=== PATIENT | male | born 1970 | race Caucasian/White ===

== ENCOUNTER → 2023-12-24 | Outpatient (CLI) | payer MEDICAID ==
[2023-12-24 12:49] LABS: BASO % 0.6 % (0.0-1.0); EOS # 0.1 10*3/uL (0.0-0.4); EOS % 0.9 % (1.0-4.0); HEMATOCRIT 42.2 % (42.0-52.0); MEAN CELL VOLUME 102.4 fl (80.0-94.0); MEAN CORPUSCULAR HGB 35.4 pg (27.0-31.0); MEAN CORPUSCULAR HGB CONC 34.6 g/dl (33.0-37.0); MEAN PLATELET VOLUME 8.8 fl (9.6-12.3); MONO # 0.5 10*3/uL (0.1-1.0); MONO % 8.1 % (3.0-9.0); NEUT # 3.8 10*3/uL (2.3-7.9); NEUT % 56.7 % (47.0-73.0); PLATELET COUNT AUTOMATED 352 10*3/uL (130-400); RED BLOOD COUNT 4.12 10*6/uL (4.50-5.90); RED CELL DISTRI WIDTH 14.5 % (0-14.5); WHITE BLOOD COUNT 6.6 10*3/uL (4.8-10.8)
[2023-12-24 13:15] LABS: ALKALINE PHOSPHATASE 54 U/L (46-116); BUN 22 mg/dl (9-23); CHLORIDE 101 mmol/L (98-107); CHOLESTEROL 157 mg/dL (<200); FREE T4 1.57 ng/dl (0.89-1.76); LDL CHOLESTEROL 58 mg/dL (9-159); SGPT/ALT 28 U/L (5-49); TOTAL PROTEIN 8.2 gm/dL (6.0-8.0); TRIGLYCERIDES 71 mg/dl (<150)
[2023-12-24 13:19] LABS: VITAMIN D, 25-HYDROXY 55.9 ng/mL (30-100)
[2023-12-25 14:06] LABS: CCP ANTIBODIES IGG/IGA 8 units (0-19)
== END | disposition home or self-care (01) ==
LOC: LAB 12:26
PROVIDERS: ATTEND Internal Medicine
DX: M17.0 Bilateral primary osteoarthritis of knee (principal); M19.042 Primary osteoarthritis, left hand; M19.041 Primary osteoarthritis, right hand; M25.462 Effusion, left knee; M25.461 Effusion, right knee; I10 Essential (primary) hypertension; M25.561 Pain in right knee; M25.562 Pain in left knee

== ENCOUNTER → 2024-02-25 | Outpatient (CLI) | payer OTHER ==
[~2024-02-25] MED LIST: LISINOPRIL20 MG PO; MELOXICAM7.5 MG PO; METHOTREXATE2.5 MG PO; PREDNISOLONE SO10 MG PO; PROMETHAZINE25 M1 PO
== END | disposition home or self-care (01) ==
LOC: RAD 07:40 → CT 09:00
PROVIDERS: ATTEND Orthopaedic Surgery
DX: M17.12 Unilateral primary osteoarthritis, left knee (principal); M81.0 Age-related osteoporosis without current pathological fracture; M25.462 Effusion, left knee; M79.89 Other specified soft tissue disorders

== ENCOUNTER 2024-04-18 01:07 | Inpatient (IN) | payer OTHER ==
[2024-04-11 11:43] LABS: BASO % 0.6 % (0.0-1.0); EOS # 0.1 10*3/uL (0.0-0.4); EOS % 1.8 % (1.0-4.0); HEMATOCRIT 47.7 % (42.0-52.0); MEAN CELL VOLUME 98.8 fl (80.0-94.0); MEAN CORPUSCULAR HGB 32.5 pg (27.0-31.0); MEAN CORPUSCULAR HGB CONC 32.9 g/dl (33.0-37.0); MEAN PLATELET VOLUME 9.3 fl (9.6-12.3); MONO # 0.5 10*3/uL (0.1-1.0); MONO % 10.8 % (3.0-9.0); NEUT # 2.2 10*3/uL (2.3-7.9); NEUT % 44.5 % (47.0-73.0); PLATELET COUNT AUTOMATED 224 10*3/uL (130-400); RED BLOOD COUNT 4.83 10*6/uL (4.50-5.90); RED CELL DISTRI WIDTH 14.1 % (0-14.5)
[2024-04-11 11:44] LABS: BILIRUBIN Negative (Negative); BLOOD Negative (Negative); CLARITY Clear (Clear); COLOR Yellow (Yellow); GLUCOSE Negative (Negative); KETONE Negative (Negative); LEUKO ESTERASE Negative (Negative); NITRITE Negative (Negative); PH 5.5 (4.5-8.0); SPECIFIC GRAVITY 1.015 (1.001-1.030); UROBILINOGEN 0.2 E.U./dl (0.0-1.0)
[2024-04-11 11:53] LABS: ACT PARTIAL THROMBO TIME 28.2 SECONDS (20.0-32.1)
[2024-04-11 12:08] LABS: BACTERIA TRACE; WBC 0-2 wbc/hpf (0-5)
[2024-04-11 12:23] LABS: ALKALINE PHOSPHATASE 74 U/L (46-116); BUN 14 mg/dl (9-23); CHLORIDE 102 mmol/L (98-107); POTASSIUM 4.3 mmol/L (3.4-5.1); SGPT/ALT 10 U/L (5-49); TOTAL PROTEIN 7.6 gm/dL (6.0-8.0)
[~2024-04-18] VITALS: Ht 182.8 cm; Wt 83.1 kg
[2024-04-18] VITALS (9 sets, daily range): BP systolic 117–146; BP diastolic 77–99
[~2024-04-18 01:07] MED LIST changes: +TRAMADOL HCL25 MG PO; +VITAMIN D350 MCG PO
[2024-04-18] MEDS ORDERED: TRANEXAMIC ACID IN NACL,ISO-OS 100 ML IV SCH (06:50)
[2024-04-18] MEDS ORDERED: ceFAZolin sodium 2GM/20ML IV ONE (06:50)
[2024-04-18] MEDS ORDERED: Lactated Ringer's Solution 1,000 ML IV ONE ×3 (06:50→15:35)
[2024-04-18] MEDS ORDERED: Ropivacaine Hydrochloride 5 MG/ML 20 ML AMP IJ ONE (07:03)
[2024-04-18] MEDS ORDERED: TRANEXAMIC ACID IN NACL,ISO-OS 100 ML IV ONE (07:11)
[2024-04-18] MEDS ORDERED: ceFAZolin sodium/sodium chlor 0 ML IV ONE (07:13)
[2024-04-18] MEDS ORDERED: Acetaminophen/Oxycodone 5 MG/325 MG TABLET PO PRN (07:30)
[2024-04-18] MEDS ORDERED: MORPHINE Sulfate 4 MG IV PRN (07:30)
[2024-04-18] MEDS ORDERED: Ondansetron Hydrochloride 4 MG/2 ML VIAL IV PRN (07:30)
[2024-04-18] MEDS ORDERED: Bupivacaine Hydrochloride/Ep2 30 ML VIAL ONE (07:36)
[2024-04-18] MEDS ORDERED: MORPHINE Sulfate 2 MG/ML SYR IV PRN (07:40)
[2024-04-18] MEDS ORDERED: Lidocaine Hydrochloride 2 ML IV ONE (07:40)
[2024-04-18] MEDS ORDERED: Cholecalciferol 2,000 UNIT TABLET (50 MCG) PO SCH (10:00)
[2024-04-18] MEDS ORDERED: DOCUSATE SODIUM 100 MG CAP PO SCH (10:00)
[2024-04-18] MEDS ORDERED: TRAMADOL HCL50 MG PO (11:49)
[2024-04-18] MEDS ORDERED: ELIQUIS5 M1 PO (11:50)
[2024-04-18] MEDS ORDERED: AIRSUPRA 90-810.7 GM INH (11:50)
[2024-04-18] MEDS ORDERED: TIZANIDINE2 MG PO (11:51)
[2024-04-18] MEDS ORDERED: NATURE'S BLEND F1 MG PO (11:51)
[2024-04-18] MEDS ORDERED: ceFAZolin sodium/sodium chlor 20 ML IV ONE (12:33)
[2024-04-18] MEDS ORDERED: ceFAZolin sodium 1 GM in SYRINGE INFUSION 10 ML IV SCH (16:00)
[2024-04-18] MEDS ORDERED: HYDROmorphone Hydrochloride 1 MG/ML SYR IV ONE ×2 (18:10→18:25)
[2024-04-18] MEDS ORDERED: HYDROmorphone Hydrochloride 1 ML IV ONE ×2 (18:28→18:44)
[2024-04-18] MEDS ORDERED: Ondansetron Hydrochloride 4 MG/2 ML VIAL IV ONE (19:01)
[2024-04-18] MEDS ORDERED: ePHEDrine Sulfate 25 MG/5 ML SYRINGE IV ONE (19:01)
[2024-04-18] MEDS ORDERED: Ketamine Hydrochloride 50 MG/5 ML SYRINGE IV ONE (19:01)
[2024-04-18] MEDS ORDERED: Lidocaine Hydrochloride 5 ML VIAL IV ONE (19:01)
[2024-04-18] MEDS ORDERED: PROPOFOL 200 MG/20 ML VIAL IV ONE (19:01)
[2024-04-18] MEDS ORDERED: Dexamethasone Sodium Phospha 4 MG/ML VIAL IV ONE (19:01)
[2024-04-18] MEDS ORDERED: SEVOFLURANE 250 ML BOT INH ONE (19:01)
[2024-04-18] MEDS ORDERED: fentaNYL CITRATE 100 MCG/2 ML VIAL IV ONE (19:01)
[2024-04-18] MEDS ORDERED: Ketorolac Tromethamine 30 MG/ML VIAL IV ONE (19:01)
[2024-04-18] MEDS ORDERED: Midazolam Hydrochloride 2 MG/2 ML VIAL IV ONE (19:01)
[2024-04-18] MEDS ORDERED: Albuterol Sulf/Ipratropium 3 ML VIAL NEB SCH (20:10)
[2024-04-18] MEDS ORDERED: Meloxicam 15 MG TAB PO SCH (22:00)
[2024-04-18] MEDS ORDERED: tiZANidine Hydrochloride 2 MG TAB PO SCH (22:00)
[2024-04-19] VITALS: BP 123/95
[2024-04-19 06:08] LABS: BASO % 0.3 % (0.0-1.0); EOS % 0.1 % (1.0-4.0); HEMATOCRIT 41.7 % (42.0-52.0); MEAN CORPUSCULAR HGB 32.8 pg (27.0-31.0); MEAN CORPUSCULAR HGB CONC 33.1 g/dl (33.0-37.0); MEAN PLATELET VOLUME 9.5 fl (9.6-12.3); MONO # 0.8 10*3/uL (0.1-1.0); NEUT # 8.1 10*3/uL (2.3-7.9); NEUT % 77.2 % (47.0-73.0); PLATELET COUNT AUTOMATED 202 10*3/uL (130-400); RED BLOOD COUNT 4.21 10*6/uL (4.50-5.90); RED CELL DISTRI WIDTH 13.6 % (0-14.5); WHITE BLOOD COUNT 10.5 10*3/uL (4.8-10.8)
[2024-04-19 06:23] LABS: BUN 12 mg/dl (9-23); CHLORIDE 102 mmol/L (98-107); POTASSIUM 4.5 mmol/L (3.4-5.1)
[2024-04-19 08:00] VITALS: BP 101/63
[2024-04-19] MEDS ORDERED: FOLIC ACID 1 MG TAB PO SCH (10:00)
[2024-04-19] MEDS ORDERED: LISINOPRIL 20 MG TAB PO SCH (10:00)
[2024-04-19 12:00] VITALS: BP 115/72
[2024-04-19 16:00] VITALS: BP 118/68
[2024-04-19 20:00] VITALS: BP 116/87
[2024-04-20] VITALS: BP 100/73
[2024-04-20 06:40] LABS: BASO # 0.1 10*3/uL (0.0-0.1); BASO % 0.5 % (0.0-1.0); EOS # 0.1 10*3/uL (0.0-0.4); EOS % 0.5 % (1.0-4.0); HEMATOCRIT 42.1 % (42.0-52.0); MEAN CELL VOLUME 96.1 fl (80.0-94.0); MEAN CORPUSCULAR HGB 32.9 pg (27.0-31.0); MEAN CORPUSCULAR HGB CONC 34.2 g/dl (33.0-37.0); MEAN PLATELET VOLUME 9.5 fl (9.6-12.3); MONO # 1.1 10*3/uL (0.1-1.0); MONO % 10.2 % (3.0-9.0); NEUT # 8.3 10*3/uL (2.3-7.9); NEUT % 74.8 % (47.0-73.0); PLATELET COUNT AUTOMATED 197 10*3/uL (130-400); RED BLOOD COUNT 4.38 10*6/uL (4.50-5.90); RED CELL DISTRI WIDTH 13.4 % (0-14.5); WHITE BLOOD COUNT 11.1 10*3/uL (4.8-10.8)
[2024-04-20 08:00] VITALS: BP 108/57
[2024-04-20] MEDS ORDERED: APIXABAN 5 MG TAB PO SCH (10:00)
[2024-04-20 12:00] VITALS: BP 103/81
[2024-04-20 16:00] VITALS: BP 113/75
[2024-04-20 19:51] VITALS: BP 121/68
[2024-04-21] VITALS: BP 96/62
[2024-04-21 04:00] VITALS: BP 99/65
[2024-04-21 06:13] LABS: BASO % 0.3 % (0.0-1.0); EOS # 0.1 10*3/uL (0.0-0.4); EOS % 1.3 % (1.0-4.0); HEMATOCRIT 40.7 % (42.0-52.0); MEAN CELL VOLUME 98.1 fl (80.0-94.0); MEAN CORPUSCULAR HGB 32.8 pg (27.0-31.0); MEAN CORPUSCULAR HGB CONC 33.4 g/dl (33.0-37.0); MEAN PLATELET VOLUME 9.7 fl (9.6-12.3); MONO # 0.9 10*3/uL (0.1-1.0); MONO % 10.2 % (3.0-9.0); NEUT # 6.8 10*3/uL (2.3-7.9); NEUT % 74.9 % (47.0-73.0); PLATELET COUNT AUTOMATED 221 10*3/uL (130-400); RED BLOOD COUNT 4.15 10*6/uL (4.50-5.90); RED CELL DISTRI WIDTH 13.4 % (0-14.5); WHITE BLOOD COUNT 9.1 10*3/uL (4.8-10.8)
[2024-04-21 08:00] VITALS: BP 108/68
[2024-04-21] MEDS ORDERED: MORPHINE Sulfate 2 MG/ML SYR ONE (09:16)
[2024-04-21] MEDS ORDERED: APIXABAN 5 MG TAB PO SCH (10:00)
[2024-04-21] MEDS ORDERED: OXYCODONE-ACET1 EAC3 PO (11:37)
[2024-04-21 12:00] VITALS: BP 114/77
== END 2024-04-21 12:12 | disposition home or self-care (01) | DRG 326 ==
LOC: SDC 01:07 → 5E 08:44
PROVIDERS: Orthopaedic Surgery; ADMIT Internal Medicine; ATTEND Internal Medicine
PROC: 0SRD0J9 Replacement of Left Knee Joint with Synthetic Substitute, Cemented, Open Approach (ICD-10-PCS; principal; 2024-04-18)
DX: M17.12 Unilateral primary osteoarthritis, left knee (principal); I10 Essential (primary) hypertension; M06.9 Rheumatoid arthritis, unspecified; D84.9 Immunodeficiency, unspecified; Z96.652 Presence of left artificial knee joint; J44.9 Chronic obstructive pulmonary disease, unspecified; F10.90 Alcohol use, unspecified, uncomplicated; Z86.711 Personal history of pulmonary embolism; Z86.73 Personal history of transient ischemic attack (TIA), and cerebral infarction without residual deficits; Z86.718 Personal history of other venous thrombosis and embolism; Z79.51 Long term (current) use of inhaled steroids; Z79.899 Other long term (current) drug therapy

== ENCOUNTER → 2024-04-22 | Outpatient (CLI) | payer OTHER ==
[~2024-04-22] MED LIST changes: +AIRSUPRA 90-810.7 GM INH; +ELIQUIS5 M1 PO; +NATURE'S BLEND F1 MG PO; +OXYCODONE-ACET1 EAC3 PO; +TIZANIDINE2 MG PO; +TRAMADOL HCL50 MG PO
[2024-04-22 09:03] LABS: BASO % 0.3 % (0.0-1.0); EOS # 0.3 10*3/uL (0.0-0.4); EOS % 3.3 % (1.0-4.0); HEMATOCRIT 40.6 % (42.0-52.0); MEAN CELL VOLUME 98.3 fl (80.0-94.0); MEAN CORPUSCULAR HGB 32.4 pg (27.0-31.0); MEAN PLATELET VOLUME 9.1 fl (9.6-12.3); MONO # 0.8 10*3/uL (0.1-1.0); MONO % 10.2 % (3.0-9.0); NEUT # 5.8 10*3/uL (2.3-7.9); NEUT % 74.2 % (47.0-73.0); PLATELET COUNT AUTOMATED 263 10*3/uL (130-400); RED BLOOD COUNT 4.13 10*6/uL (4.50-5.90); WHITE BLOOD COUNT 7.8 10*3/uL (4.8-10.8)
== END | disposition home or self-care (01) ==
LOC: LAB 08:42
PROVIDERS: ATTEND Orthopaedic Surgery
DX: D64.9 Anemia, unspecified (principal)

== ENCOUNTER → 2024-04-28 | Outpatient (CLI) | payer OTHER | END | disposition home or self-care (01) | LOC: ORTHO 04:13 | PROVIDERS: ATTEND Orthopaedic Surgery | DX: M25.462 Effusion, left knee (principal); M79.89 Other specified soft tissue disorders; J43.9 Emphysema, unspecified; Z47.1 Aftercare following joint replacement surgery ==

== ENCOUNTER → 2024-05-10 | Outpatient (CLI) | payer OTHER ==
[2024-05-10 09:35] LABS: BASO # 0.1 10*3/uL (0.0-0.1); BASO % 0.8 % (0.0-1.0); EOS # 0.2 10*3/uL (0.0-0.4); EOS % 2.3 % (1.0-4.0); HEMATOCRIT 45.1 % (42.0-52.0); MEAN CELL VOLUME 96.6 fl (80.0-94.0); MEAN CORPUSCULAR HGB 32.1 pg (27.0-31.0); MEAN CORPUSCULAR HGB CONC 33.3 g/dl (33.0-37.0); MEAN PLATELET VOLUME 8.9 fl (9.6-12.3); MONO # 0.6 10*3/uL (0.1-1.0); MONO % 9.7 % (3.0-9.0); NEUT # 3.2 10*3/uL (2.3-7.9); NEUT % 48.8 % (47.0-73.0); PLATELET COUNT AUTOMATED 410 10*3/uL (130-400); RED BLOOD COUNT 4.67 10*6/uL (4.50-5.90); RED CELL DISTRI WIDTH 13.4 % (0-14.5); WHITE BLOOD COUNT 6.6 10*3/uL (4.8-10.8)
[2024-05-10 10:01] LABS: ALKALINE PHOSPHATASE 76 U/L (46-116); BUN 14 mg/dl (9-23); CHLORIDE 105 mmol/L (98-107); POTASSIUM 4.6 mmol/L (3.4-5.1); SGPT/ALT 11 U/L (5-49); TOTAL PROTEIN 7.8 gm/dL (6.0-8.0)
[2024-05-11 15:07] LABS: CCP ANTIBODIES IGG/IGA 8 units (0-19)
== END | disposition home or self-care (01) ==
LOC: LAB 08:40
PROVIDERS: ATTEND Specialist
DX: M50.323 Other cervical disc degeneration at C6-C7 level (principal); M48.02 Spinal stenosis, cervical region; M25.78 Osteophyte, vertebrae; M19.042 Primary osteoarthritis, left hand; M19.041 Primary osteoarthritis, right hand; M05.7A Rheumatoid arthritis with rheumatoid factor of other specified site without organ or systems involvement

== ENCOUNTER → 2024-05-26 | Outpatient (CLI) | payer OTHER | END | disposition home or self-care (01) | LOC: ORTHO 00:30 | PROVIDERS: ATTEND Orthopaedic Surgery | DX: Z47.1 Aftercare following joint replacement surgery (principal) ==

== ENCOUNTER → 2024-07-07 | Outpatient (CLI) | payer OTHER | END | disposition home or self-care (01) | LOC: ORTHO 01:22 | PROVIDERS: ATTEND Orthopaedic Surgery | DX: M79.89 Other specified soft tissue disorders (principal); Z47.1 Aftercare following joint replacement surgery ==

== ENCOUNTER → 2024-07-28 | Outpatient (CLI) | payer OTHER | END | disposition home or self-care (01) | LOC: ORTHO 01:28 | PROVIDERS: ATTEND Orthopaedic Surgery | DX: M16.0 Bilateral primary osteoarthritis of hip (principal); M25.552 Pain in left hip ==

== ENCOUNTER → 2024-08-30 | Outpatient (CLI) | payer OTHER ==
[~2024-08-30] MED LIST changes: +GADOTERATE MEGLUMINE 5 MMOL/10 ML VIAL IV ONE; +IOHEXOL 240 MG/ML 10 ML SOL IJ ONE; +IOHEXOL 240 MG/ML 20 ML SOL IJ ONE; +IOHEXOL 240 MG/ML 20 ML SOL ONE; +Lidocaine Hydrochloride 0 ML IV ONE; +Lidocaine Hydrochloride 5 ML AMP IJ ONE; +SODIUM BICARBONATE 4.2% 5 ML VIAL IJ ONE; +SODIUM BICARBONATE 4.2% 5 ML VIAL ONE; +SODIUM CHLORIDE 0.9% 10 ML VIAL IJ ONE; +SODIUM CHLORIDE 0.9% 10 ML VIAL ONE
[2024-08-30 12:46] LABS: ACT PARTIAL THROMBO TIME 26.2 SECONDS (20.0-32.1)
== END | disposition home or self-care (01) ==
LOC: EDSTATUS 13:00
PROVIDERS: ATTEND Orthopaedic Surgery
DX: M25.552 Pain in left hip (principal); E78.00 Pure hypercholesterolemia, unspecified; M19.90 Unspecified osteoarthritis, unspecified site; Q65.89 Other specified congenital deformities of hip; Z98.890 Other specified postprocedural states; Z79.899 Other long term (current) drug therapy

== ENCOUNTER → 2024-09-08 | Outpatient (CLI) | payer OTHER ==
[~2024-09-08] MED LIST changes: -GADOTERATE MEGLUMINE 5 MMOL/10 ML VIAL IV ONE; -IOHEXOL 240 MG/ML 10 ML SOL IJ ONE; -IOHEXOL 240 MG/ML 20 ML SOL IJ ONE; -IOHEXOL 240 MG/ML 20 ML SOL ONE; -Lidocaine Hydrochloride 0 ML IV ONE; -Lidocaine Hydrochloride 5 ML AMP IJ ONE; -SODIUM BICARBONATE 4.2% 5 ML VIAL IJ ONE; -SODIUM BICARBONATE 4.2% 5 ML VIAL ONE; -SODIUM CHLORIDE 0.9% 10 ML VIAL IJ ONE; -SODIUM CHLORIDE 0.9% 10 ML VIAL ONE
== END ==
LOC: RAD 08:58
PROVIDERS: ATTEND Nurse Practitioner
DX: M47.812 Spondylosis without myelopathy or radiculopathy, cervical region (principal); M48.02 Spinal stenosis, cervical region; M48.061 Spinal stenosis, lumbar region without neurogenic claudication; M25.78 Osteophyte, vertebrae; M54.59 Other low back pain

== ENCOUNTER → 2024-10-06 | Outpatient (CLI) | payer OTHER | END | disposition home or self-care (01) | LOC: ORTHO 10-05 10:15 | PROVIDERS: ATTEND Orthopaedic Surgery | DX: M17.0 Bilateral primary osteoarthritis of knee (principal) ==